=== PATIENT | male | born 2000 | race African-American/Black ===

== ENCOUNTER 2020-09-24 21:10 | Emergency (ER) | payer OTHER ==
[~2020-09-24] VITALS: Ht 167.6 cm; Wt 76.2 kg
[2020-09-24 22:15] VITALS: BP 121/65; TEMP 100.4
== END 2020-09-24 22:15 | disposition home or self-care (01) ==
LOC: ED 21:10
DX: L02.415 Cutaneous abscess of right lower limb (principal); S80.861A Insect bite (nonvenomous), right lower leg, initial encounter; W57.XXXA Bitten or stung by nonvenomous insect and other nonvenomous arthropods, initial encounter; Y92.89 Other specified places as the place of occurrence of the external cause
CPT/HCPCS: 96372; 99283; J0696; J1885